=== PATIENT | male | born 1985 | race Two or more races ===

== ENCOUNTER 2024-03-23 22:31 | Emergency (ER) | payer OTHER ==
[~2024-03-23] VITALS: Ht 177.8 cm; Wt 86.2 kg
[2024-03-23 22:31] VITALS: O2SAT 98
[2024-03-23] MEDS: TDAP DIPH,PERTUSS,TET VAC/PF 0.5 ML DISP.SYRIN IM ONE (23:40)
[2024-03-23] MEDS ORDERED: LIDOCAINE HCL 1% 20 ML VIAL ONE (23:49)
[2024-03-23] MEDS: LIDOCAINE HCL 1% 20 ML VIAL IJ ONE (23:59)
== END 2024-03-24 00:45 | disposition home or self-care (01) ==
LOC: ER 22:34
DX: S01.412A Laceration without foreign body of left cheek and temporomandibular area, initial encounter (principal); F17.210 Nicotine dependence, cigarettes, uncomplicated; X78.8XXA Intentional self-harm by other sharp object, initial encounter; Y93.89 Activity, other specified; Y92.89 Other specified places as the place of occurrence of the external cause; Y99.8 Other external cause status
CPT/HCPCS: 99282; 12013; J3490; A4606; A4663